=== PATIENT | female | born 1970 | race Caucasian/White ===

== ENCOUNTER 2023-12-22 12:26 | Inpatient (IN) ==
[2023-12-22 12:57] LABS: ABS Basophils 0.1 10^3/uL (0.0-0.1); ABS Eosinophils 0.2 10^3/uL (0.0-0.5); ABS Lymphocytes 3.9 10^3/uL (1.0-4.8); ABS Monocytes 0.7 10^3/uL (0.0-0.9); ABS Neutrophils 4.6 10^3/uL (1.5-7.6); ABS Nucleated RBC 0.02 10^3/ul; Hematocrit 44.3 % (35-45); Hemoglobin 15.5 g/dL (11.5-14.3); Lymphocyte % 41.5 %; Mean Corpuscular Volume 100.1 fL (80-97); Nucleated Red Blood Cells % 0.2 %/100WBC (0.0-0.8); Platelet Count 213 10^3/uL (150-450); Red Blood Count 4.43 10^6/uL (3.63-4.92); Red Cell Distribution Width 13.8 % (12-17); White Blood Count 9.5 10^3/uL (3.8-11.8)
[2023-12-22 13:03] LABS: INR 1.16 (0.83-1.13)
[2023-12-22 13:40] LABS: Albumin 4.3 g/dL (3.2-5.2); Albumin/Globulin Ratio 1.6 (1-3); Calcium 9.4 mg/dL (8.6-10.3); Creatinine, Serum 0.7 mg/dL (0.51-0.95); Globulin 2.7 g/dL (2-4); Potassium 3.9 mmol/L (3.5-5.0); Total Bilirubin 1.1 mg/dL (0.2-1.0); eGFR CKD-EPI 104.6 (>60)
[2023-12-22 14:16] LABS: High Sensitivity Troponin 1 Hr 16 pg/mL (<15)
[2023-12-22] MEDS: Albuterol/Ipratropium NEB.SOL (2.5/0.5 MG) 3 ML NEB.SOLN INH ONE (14:17)
[2023-12-22] MEDS: NS 0.9% 1000 ml BAG 1,000 ML IV ONE (16:56)
[2023-12-22] MEDS: Iohexol 350 (CONTRAST) 500 ML MDV IV ONE (17:40)
[2023-12-22] MEDS ORDERED: Senna TAB 8.6 mg TAB PO PRN (19:32)
[2023-12-22] MEDS ORDERED: Polyethylene Glycol 3350 17 GM PACKET PO PRN (19:32)
[2023-12-22] MEDS ORDERED: Ondansetron 4 mg VIAL 2 MG/ML 2 ml VIAL IV PRN (19:32)
[2023-12-22] MEDS: Enoxaparin 40 MG/0.4 ML SYR SUBCUT SCH (22:19)
[2023-12-23 06:13] LABS: Albumin 3.8 g/dL (3.2-5.2); Albumin/Globulin Ratio 1.7 (1-3); Calcium 8.8 mg/dL (8.6-10.3); Creatinine, Serum 0.78 mg/dL (0.51-0.95); Globulin 2.3 g/dL (2-4); HDL Cholesterol 26.2 mg/dL; Magnesium 1.8 mg/dL (1.9-2.7); Potassium 3.6 mmol/L (3.5-5.0); Total Bilirubin 1.2 mg/dL (0.2-1.0); Total Protein 6.1 g/dL (6.4-8.9); eGFR CKD-EPI 91.9 (>60)
[2023-12-23 06:28] LABS: TSH Ultra Thyroid Stim Horm 2.65 mcIU/mL (0.34-5.60)
[2023-12-23] MEDS ORDERED: Aminophylline 25 MG/ML VIAL ONE (07:51)
[2023-12-23] MEDS ORDERED: Regadenoson 0.4 MG/5 ML SYRINGE ONE (07:52)
[2023-12-23] MEDS ORDERED: Sulfur Hexaflouride MICROSPHR 25 MG VIAL ONE (10:55)
[2023-12-23] MEDS: Magnesium Sulfate 2 gm BAG 2 GM/50 ML BAG IVPB ONE (11:15)
[2023-12-23] MEDS: Sulfur Hexaflouride MICROSPHR 25 MG VIAL IV ONE (11:20)
[2023-12-23 14:29] LABS: Ferritin 392.3 ng/mL (11-307)
[2023-12-23] MEDS: Furosemide 40 mg/4 ml IV VIAL IV ONE (14:42)
[2023-12-23] MEDS ORDERED: Acetaminophen IV 1 GM/100ML 1,000 MG/100 ML BAG IV PRN (15:07)
[2023-12-23 15:40] LABS: Direct Bilirubin 0.2 mg/dL (0.03-0.18); Indirect Bilirubin 1.8 mg/dL (0.3-1.0)
[2023-12-23 16:35] LABS: High Sensitivity Troponin 1 Hr 18 pg/mL (<15)
[2023-12-23] MEDS: Albuterol 2.5mg/3 ml (0.083%) NEB.SOLN INH ONE (22:19)
[2023-12-24 06:33] LABS: Calcium 9.1 mg/dL (8.6-10.3); Creatinine, Serum 0.74 mg/dL (0.51-0.95); Magnesium 2.3 mg/dL (1.9-2.7); Potassium 3.6 mmol/L (3.5-5.0); eGFR CKD-EPI 97.9 (>60)
[2023-12-24] MEDS: Furosemide 40 mg/4 ml IV VIAL IV SCH (07:51)
[2023-12-24] MEDS: Potassium Chlor 20 meq TAB.ER PO ONE (16:00)
[2023-12-25 05:28] LABS: ABS Eosinophils 0.2 10^3/uL (0.0-0.5); ABS Lymphocytes 3.9 10^3/uL (1.0-4.8); ABS Monocytes 0.7 10^3/uL (0.0-0.9); ABS Neutrophils 4.7 10^3/uL (1.5-7.6); ABS Nucleated RBC 0.02 10^3/ul; Hematocrit 47.2 % (35-45); Hemoglobin 16.4 g/dL (11.5-14.3); Lymphocyte % 40.9 %; Mean Corpuscular Hemoglobin 34.6 pg (27-33); Mean Corpuscular Hgb Conc 34.8 g/dL (31-36); Mean Corpuscular Volume 99.2 fL (80-97); Mean Platelet Volume 9.1 fL (7.5-11.2); Nucleated Red Blood Cells % 0.2 %/100WBC (0.0-0.8); Platelet Count 215 10^3/uL (150-450); Red Blood Count 4.75 10^6/uL (3.63-4.92); Red Cell Distribution Width 13.6 % (12-17); White Blood Count 9.6 10^3/uL (3.8-11.8)
[2023-12-25 05:57] LABS: Calcium 9.7 mg/dL (8.6-10.3); Creatinine, Serum 0.7 mg/dL (0.51-0.95); Magnesium 2.2 mg/dL (1.9-2.7); eGFR CKD-EPI 104.6 (>60)
[2023-12-26 05:08] LABS: Hemoglobin 16.4 g/dL (11.5-14.3); Mean Corpuscular Hemoglobin 34.9 pg (27-33); Mean Corpuscular Hgb Conc 34.9 g/dL (31-36); Mean Corpuscular Volume 100.1 fL (80-97); Mean Platelet Volume 9.4 fL (7.5-11.2); Platelet Count 204 10^3/uL (150-450); Red Cell Distribution Width 13.5 % (12-17); White Blood Count 10.2 10^3/uL (3.8-11.8)
[2023-12-26 05:35] LABS: Calcium 9.6 mg/dL (8.6-10.3); Creatinine, Serum 0.78 mg/dL (0.51-0.95); eGFR CKD-EPI 91.9 (>60)
[2023-12-26] MEDS: NS 0.9% 1000 ml BAG 1,000 ML IV SCH (07:37)
[2023-12-26] MEDS ORDERED: fentaNYL 100 mcg/2 ml 50 MCG/ML VIAL ONE (08:08)
[2023-12-26] MEDS ORDERED: Heparin 1,000 UNIT/ML 10 ml (10,000 UNITS) CATHLAB/DIALYSIS ONE (08:08)
[2023-12-26] MEDS ORDERED: Midazolam 5 mg/5 ml VIAL 1 mg/ml 5 ml VIAL (5 mg) ONE (08:08)
[2023-12-26] MEDS ORDERED: VERAPAMIL 2.5 MG/ML 2 ML VIAL ** 5 mg/2 ml ONE (08:08)
[2023-12-26] MEDS ORDERED: Iohexol 350 (CONTRAST) 100 ML PAK IV ONE (08:09)
[2023-12-26] MEDS ORDERED: Heparin 2 UNITS/ML 1000 mls 2,000 ML IV ONE (08:09)
[2023-12-26] MEDS ORDERED: Lidocaine 1% MPF 5 ML VIAL ONE (08:09)
[2023-12-26] MEDS ORDERED: nitroGLYCERIN DRIP 25,000 MCG/250 ML BTL ONE (08:09)
[2023-12-26] MEDS ORDERED: Heparin 2 UNITS/ML 1000 mls 1,000 ML IV ONE (08:34)
[2023-12-26] MEDS: fentaNYL 100 mcg/2 ml 50 MCG/ML VIAL IV SLOW PU ONE (11:13)
[2023-12-26] MEDS: Midazolam 10 mg/10 ml VIAL 1 mg/ml 10 ml VIAL (10 mg) IV SLOW PU ONE (11:13)
[2023-12-26 16:00] VITALS: BP 105/80
== END 2023-12-26 16:09 | disposition home or self-care (01) | DRG 192 ==
LOC: ED 12:26 → EDHOLD 12:26 → MEDTELE 16:30 → SUATTDRO 19:32 → MEDTELE 23:22 → SUATTDRO 12-24
PROVIDERS: ADMIT Student in an Organized Health Care Education/Training Program; ATTEND Internal Medicine